=== PATIENT | female | born 2000 | race Caucasian/White ===

== ENCOUNTER 2019-04-14 15:59 | Emergency (ER) | payer MEDICAID, OTHER ==
[2019-04-14] MEDS: ACETAMINOPHEN 325 MG TAB PO (17:41)
[2019-04-14] MEDS: ONDANSETRON (ODT) 4 MG TAB ODT (17:41)
== END 2019-04-14 18:50 | disposition home or self-care (01) ==
LOC: FTE 15:59
DX: S09.90XA Unspecified injury of head, initial encounter (principal); V47.5XXA Car driver injured in collision with fixed or stationary object in traffic accident, initial encounter
CPT/HCPCS: 99283; Z7610